=== PATIENT | female | born 1945 | race Caucasian/White ===

== ENCOUNTER 2017-01-23 00:49 | Emergency (ER) | payer MEDICARE, OTHER ==
[~2017-01-23] VITALS: Ht 160 cm; Wt 91.5 kg
[~2017-01-23 00:49] MED LIST: ASPI81TA2 PO; ATEN25TA PO; ENZY1TAB5 PO; LEVO112T4 PO; LEVO125T4 PO; MULT-1175 PO; POTA99TA4 PO
[2017-01-23 00:51] VITALS: Ht 160 cm; Wt 91.5 kg
--- OUTSIDE RECORDS SUMMARY | 2017-01-23 00:55 | XMS REPORT | Continuity of Care Document ---
Author Author [facility] Organization [facility] Address Unknown Phone Unavailable Support Name Relationship Address Phone CLEMENCIA BLANCO DO Caregiver [address] [place] [address] Unavailable BRADY WANG MD Caregiver [address] [place] [address] [place] [address] Unavailable JAQUELINE ORDAZ Next Of Kin [address] [place] [address] Insurance Providers Guarantor Binta Ordaz Address [address] [place] [address] Email DENIED/09/07/16 Payer Other A Insurance Policy Number [id number] Subscriber's Name OrlinJosianepatric Salinas Relationship 18 Self Group Number [id number] Effective Date 11 Payer Medicare Policy Number [id number] Subscriber's Name Josiane Ordazpatric Salinas Relationship 18 Self Effective Date 08 Advance Directives Directive Response Recorded Date/Time Advanced Directives Type None 09/07/16 1:00pm Chief Complaint and Reason for Visit Chief Complaint Cardiac Complaint Reason for Visit Atypical chest pain Problems Active Problems Medical Problem Onset Date Status Constipation Unknown Acute Hemorrhagic cystitis Unknown Acute Past Problems Medical Problem Onset Date Atypical chest pain Unknown Constipation Unknown Medications Current Home Medications Medication Dose Units Route Directions Days Qty Instructions Start Date Aspirin 81 Mg Tab.chew 81 Mg Oral Daily 08/24/15 Atenolol 25 Mg Tablet 25 Mg Oral Bedtime 03/01/16 Enzymes,Digestive (Digestive Enzyme) 1 Each Tablet 2 Tab Oral Daily as needed for Prn Orders 08/24/15 Levothyroxine Sodium (Synthroid) 112 Mcg Tablet 112 Mcg Oral Every Other Day 03/01/16 Levothyroxine Sodium (Synthroid) 125 Mcg Tablet 125 Mcg Oral Every Other Day 03/01/16 Multivitamin (Multi-Vitamin Daily) 1 Each Tablet 1 Tab Oral Twice A Day 08/24/15 Potassium 99 Mg Tablet 99 Mg Oral Daily 08/24/15 Past Home Medications Medication Directions Ordered Status Ezetimibe (Zetia) 10 Mg Tablet, 10 Mg Oral Daily 05/29/09 Discontinued Social History Social History Problem Response Recorded Date/Time Onset Date Status Hx Substance Use No 09/07/2016 1:44pm Not Applicable Not Applicable Hx Alcohol Use No 09/07/2016 1:44pm Not Applicable Not Applicable Query Response Start Date Stop Date Smoking Status Never smoker Hospital Discharge Instructions No hospital discharge instructions. Plan of Care Discharge Date 09/07/16 2:45pm Disposition 01 DISCHARGED HOME, SELF-CARE Condition at Discharge Stable Instructions/Education Provided DI for Atypical Chest Pain Prescriptions See Medication Section Referrals CLEMENCIA BLANCO DO Address: [address] [place] [address] [place] [phone] Additional Instructions/Education Continue to monitor your symptoms and make sure that you are drinking plenty of fluids. I did speak with Dr. Simmons's Nurse Practitioner and she states that if you continue to have trouble with this kind of pain they can do a stress test in the office. If this continues then please follow up with Dr Simmons in the next few weeks. Care Plan and Goals Physician Care Plan Problem:Atypical Chest Pain Goal: Follow up with primary care provider Instructions: Take medications and follow care plan as discussed/written Functional Status No functional status results. Allergies, Adverse Reactions, Alerts Allergen Type Severity Reaction Status Last Updated No Known Drug Allergies Allergy Unknown Active 09/07/16 Immunizations Query Response on File Recorded Date/Time Hx Influenza Vaccination Y 200705/29/09 3:04pm Hx Pneumococcal Vaccination No 05/29/09 3:04pm Hx Influenza Vaccination Y 200705/29/09 3:04pm Influenza Vaccine Hx FALL 201509/07/16 1:44pm Vital Signs Acute Vital Signs Vital Response Date/Time Temperature (Fahrenheit) 97.7 deg F (96.8 - 99.1) 09/07/2016 2:45pm Temperature (Calculated Celsius) 36.61471 degrees C (36.0 - 37.3) 09/07/2016 2:45pm Pulse Rate (adult) 74 bpm (60 - 100) 09/07/2016 2:45pm Respiratory Rate 18 breaths/min (10 - 20) 09/07/2016 2:45pm O2 Sat by Pulse Oximetry 98 % (90 - 100) 09/07/2016 2:45pm Blood Pressure 145/78 mm Hg 09/07/2016 2:45pm Height (Feet) 5 feet 09/07/2016 1:00pm Height (Inches) 3.00 inches 09/07/2016 1:00pm Weight (Kilograms) 82.000 kg 09/07/2016 1:00pm Body Mass Index (BMI) 32.0 09/07/2016 1:00pm Results Laboratory Results Test Name Result Units Flags Reference Collection Date/Time Result Date/ Time Comments White Blood Count 8.6 T/MM3 4.5-11.0 09/07/2016 1:11pm 09/07/2016 1: 38pm Red Blood Count 4.59 M/MM3 4.00-5.20 09/07/2016 1:11pm 09/07/2016 1: 38pm Hemoglobin 14.2 GM/DL 12-16 09/07/2016 1:11pm 09/07/2016 1:38pm Hematocrit 43.0 % 36-46 09/07/2016 1:11pm 09/07/2016 1:38pm Mean Corpuscular Volume 93.7 UM3 80-100 09/07/2016 1:11pm 09/07/2016 1: 38pm Mean Corpuscular Hemoglobin 30.9 UUG 26-34 09/07/2016 1:11pm 2016 1:38pm Mean Corpuscular Hemoglobin Concent 33.0 GM/DL 31-37 09/07/2016 1:11pm 09/07/2016 1:38pm RDW Standard Deviation 44.8 FL 36.9-50.2 09/07/2016 1:11pm 09/07/2016 1 :38pm Platelet Count 226 T/MM3 130-400 09/07/2016 1:11pm 09/07/2016 1:38pm Mean Platelet Volume 9.6 UM3 9.4-12.4 09/07/2016 1:11pm 09/07/2016 1: 38pm Neutrophils (%) (Auto) 35.2 % 33-66 09/07/2016 1:11pm 09/07/2016 1: 38pm Lymphocytes (%) (Auto) 54.8 % H 23-45 09/07/2016 1:11pm 09/07/2016 1: 38pm Monocytes (%) (Auto) 7.5 % 0-9.0 09/07/2016 1:09/07/2016 1:38pm Eosinophils (%) (Auto) 2.2 % 0-4 09/07/2016 1:09/07/2016 1:38pm Basophils (%) (Auto) 0.2 % 0-2 09/07/2016 1:1109/07/2016 1:38pm Immature Granulocyte % (Auto) 0.1 % 0.0-0.5 09/07/2016 1:2016 1:38pm Absolute Neutrophils (auto) 3.0 T/MM3 1.8-7.7 09/07/2016 1:112016 1:38pm Absolute Lymphocytes (auto) 4.7 T/MM3 1-4.8 09/07/2016 1:2016 1:38pm Absolute Monocytes (auto) 0.6 T/MM3 0-0.8 09/07/2016 1:1109/07/2016 1:38pm Absolute Eosinophils (auto) 0.2 T/MM3 0-0.5 09/07/2016 1:112016 1:38pm Absolute Basophils (auto) 0.0 T/MM3 0-0.2 09/07/2016 1:09/07/2016 1:38pm Absolute Immature Granulocyte (auto 0.01 T/MM3 0.00-0.03 09/07/2016 1: 09/07/2016 1:38pm Icterus Index < 2 0-7 09/07/2016 1:09/07/2016 1:43pm Chemistry Specimen Hemolysis < 15 0-25 09/07/2016 1:09/07/2016 1 :43pm 0-25: Specimen Exhibited No Hemolysis. Turbidity < 20 0-20 09/07/2016 1:pm 09/07/2016 1:43pm Sodium Level 143 MEQ/L 134-144 09/07/2016 1:09/07/2016 1:43pm Potassium Level 3.8 MEQ/L 3.6-5 09/07/2016 1:11pm 09/07/2016 1:43pm Chloride Level 103 MEQ/L 98-107 09/07/2016 1:1109/07/2016 1:43pm Carbon Dioxide Level 27 MEQ/L 22-30 09/07/2016 1:11pm 09/07/2016 1: 43pm Anion Gap 13 MEQ/L 5-15 09/07/2016 1:11pm 09/07/2016 1:43pm Blood Urea Nitrogen 14.0 MG/DL 7-17 09/07/2016 1:11pm 09/07/2016 1: 43pm Creatinine 0.7 MG/DL 0.7-1.2 09/07/2016 1:11pm 09/07/2016 1:43pm BUN/Creatinine Ratio 20 RATIO 6-26 09/07/2016 1:11pm 09/07/2016 1:43pm Glomerular Filtration Rate Calc 82 09/07/2016 1:11pm 09/07/2016 1: 43pm Glucose Level 126 MG/DL H 65-110 09/07/2016 1:11pm 09/07/2016 1:43pm Calculated Osmolality 278 MOSM/KG 261-280 09/07/2016 1:11pm 09/07/2016 1:43pm Calcium Level 10.0 MG/DL 8.4-10.2 09/07/2016 1:11pm 09/07/2016 1:43pm Troponin I < 0.012 ng/ml 0-0.12 09/07/2016 1:11pm 09/07/2016 1:55pm Troponin values with a difference of 55% increase from orginal troponin value represent a true biological DELTA value. (%increase Calc=Orginal Troponin value, divided by subsequent Troponin value, multiplied by 100) Procedures No known history of procedures. Encounters Encounter Location Arrival/Admit Date Discharge/Depart Date Attending Provider Departed Emergency Room [facility] 09/07/16 12:59pm 09/07/16 2: 45pm BRADY WANG MD Recent Diagnosis
--- NOTE | 2017-01-23 01:15 | NUR ---
PROVIDER DR. LOMBARDO IN ROOM WITH PT.
[2017-01-23] MEDS ORDERED: LORAZEPAM 1 MG TABLET PO ONE (01:30)
[2017-01-23] MEDS ORDERED: NITROGLYCERIN 0.4 MG SUBLINGUAL TABLET SL PRN (01:30)
[2017-01-23 01:42] LABS: BASOPHILS % (AUTO) 0.1 % (0-2); EOSINOPHILS # (AUTO) 0.3 T/MM3 (0-0.5); EOSINOPHILS % (AUTO) 3.1 % (0-4); HGB - HEMOGLOBIN 13.1 GM/DL (12-16); IMMATURE GRANULOCYTE # (AUTO) 0.02 T/MM3 (0.00-0.03); IMMATURE GRANULOCYTE % (AUTO) 0.2 % (0.0-0.5); LYMPHOCYTES # (AUTO) 4.5 T/MM3 (1-4.8); LYMPHOCYTES % (AUTO) 52.1 % (23-45); MEAN CORPUSCULAR HGB 31.2 UUG (26-34); MEAN CORPUSCULAR HGB CONC(MCHC 32.8 GM/DL (31-37); MEAN CORPUSCULAR VOLUME 95.2 UM3 (80-100); MEAN PLATELET VOLUME 9.5 UM3 (9.4-12.4); MONOCYTES # (AUTO) 0.6 T/MM3 (0-0.8); MONOCYTES % (AUTO) 6.9 % (0-9.0); NEUTROPHILS #(AUTO)-ABSOLUTE 3.2 T/MM3 (1.8-7.7); NEUTROPHILS % (AUTO) 37.6 % (33-66); WBC - WHITE BLOOD COUNT 8.6 T/MM3 (4.5-11.0)
[2017-01-23] MEDS ORDERED: LORAZEPAM 2 MG/ML INJECTION IV ONE (01:45)
[2017-01-23] MEDS: NORMAL SALINE 1,000 ML IV ONE (01:48)
[2017-01-23] MEDS: ASPIRIN 81 MG CHEWABLE TABLET PO ONE (01:52)
[2017-01-23] MEDS: LORAZEPAM 2 MG/ML INJECTION IV ONE (01:52)
[2017-01-23 01:54] LABS: ALBUMIN 4.3 G/DL (3.5-5.0); ALBUMIN/GLOBULIN RATIO 1.5 RATIO (1.1-2.2); ALKALINE PHOSPHATASE 53 U/L (38-126); ALT (SGPT) 35 U/L (9-52); ANION GAP 16 MEQ/L (5-15); AST (SGOT) 29 U/L (14-36); BUN/CREATININE RATIO 25 RATIO (6-26); CALCIUM 9.3 MG/DL (8.4-10.2); CHLORIDE 105 MEQ/L (98-107); CO2 - CARBON DIOXIDE 24 MEQ/L (22-30); CREATININE 0.8 MG/DL (0.7-1.2); GLOMERULAR FILTRATION RATE 71; GLUCOSE 153 MG/DL (65-110); SODIUM 145 MEQ/L (134-144); TOTAL PROTEIN 7.2 G/DL (6.3-8.2)
[2017-01-23 02:00] LABS: INR 0.97 (0.77-1.03); PROTHROMBIN TIME 10.7 SEC (9.48-12.52)
[2017-01-23 02:06] LABS: PROBNP 271 PG/ML (0-175)
[2017-01-23 02:24] LABS: THYROID STIM HORMONE-TSH 6.03 MIU/L (0.47-4.68)
--- NOTE | 2017-01-23 02:30 | NUR ---
PROVIDER DR. LOMBARDO IN ROOM WITH PT.
--- NOTE | 2017-01-23 02:33 | NUR ---
PT STATUS PT STATES HER RIGHT ARM PAIN HAS DECREASED, CONTINUES TO DENY ANY CHEST DISCOMFORT OR DYSPNEA. PT NOW REMEMBERS SHE WAS CARRING HEAVY JUGS TODAY AND DID A LOT OF SWEEPING, ACTIVITIES THAT WOULD NOT BE NORMAL FOR HER. PT RATING PAIN A 3/10 TO RIGHT BICEP AT THIS TIME. PT SHOWS NO SIGNS OF DISCOMFORT. Addendum: 01/23/17 at 0239 by SHAYLA RIGHT TROCEP, NOT BICEP.
--- NOTE | 2017-01-23 02:36 | ERPDOC ---
Departure Disposition Decision Date: January 23, 2017 Disposition Decision Time: 02:40 Disposition: 01 DISCHARGED HOME, SELF-CARE Impression Impression Impression: Primary Impression: Right arm pain Additional Impression: Chest pain Severity: Moderate Condition: Improved Seen By: Physician only Referrals: CLEMENCIA BLANCO DO (Family) Patient Instructions: Anxiety (ED), Musculoskeletal Pain (ED) Problems/Meds/Labs Reviewed?: Yes Medications reviewed and manag: Yes Additional Instructions: Please return immediately if symptoms recur. At this point I do believe this is musculoskeletal and anxiety due to year his friends last week. The Ativan you were given follow-up to relax tonight. Would recommend he follow up with her primary care provider and discuss other options for the future. Follow up care ordered?: Yes Mental Status: Alert, Oriented HPI - Chest Pain General Chief Complaint: Cardiac Complaint Stated Complaint: RIGHT ARM PAIN,GAS PAIN Time Seen by Provider: 01:25 HPI - Chest Pain Initial Comments 71-year-old female presents with right-sided arm pain radiating up to her shoulder. She had a very stressful week last week with her 53-year-old son going into [employer] in the emergency room and requiring CPR, a trip to the [facility] [employer], and ultimately a balloon pump. He then had cardiac bypass surgery. He is survived, is home with them and the anxiety level in their home is pretty high. She does not normally have anxiety problems. She has not had a cardiac stress test in many years. His have a history of atrial stenosis. No tobacco use, essentially no alcohol use. Aspirin Treatment Today: 81 mg x 4 Allergies: Coded Allergies: No Known Drug Allergies (Verified Allergy, Unknown, 01/23/17) Past History Past Medical History Metabolic: hypertension, hypothyroidism Cardiac: other GI: other Musculoskeletal: back pain, osteoarthritis Surgical History General: EGD, gallbladder, other Joint: elbow Family History Family PMH: FOUND: other Vaccines Hx Influenza Vaccination: Yes (2007) Hx Pneumococcal Vaccination: No Social History Smoking Status: Never smoker Substance Use Type: does not use Alcohol Intake: none Sexuality: male partner Record Review Pertinent history updated: Yes Review of Systems Cardiovascular Cardiac: see HPI Rhythm/Rate: see HPI All other Systems All Other Systems: Reviewed and Negative Physical Exam General General Nourishment: well nourished, well developed, adult Distress Description Patient is right-sided arm pain Vitals and Pain First Documented Vital Signs Date Time Temp Pulse Resp B/P Pulse Ox O2 Delivery O2 Flow Rate FiO2 01/23/17 00:51 97.9 73 14 184/88 98 Room Air Weight: Kilograms: 91.500 Height (feet): 5 Height (inches): 3.00 Triage Pain Scale: Normal Exams: Neck: Full range of motion, without adenopathy, JVD, bruits or thyromegaly Chest/Resp: Clear all [place], with good airflow, and symmetry bilaterally CV: Regular rate and rhythm, without murmur or gallop, Pulses 2+ all extremities, capillary refill, <2 seconds all ext., no pedal edema noted Neurologic: Patient is alert, and oriented, cranial nerves, motor/sensory/ cerebellar, exams w/o gross deficits, to observation Psychiatric: Patient exhibits, appropriate attention, emotion and affect Musculoskeletal (brief) Comments Tenderness to palpation right triceps and posterior shoulder. Differential Diagnoses Considering: Acute IL, Anxiety/Panic, Angina, Pleurisy, Pneumothorax, Pneumonia , Pulmonary Edema, Pulmonary Embolus Progress Results/Orders Orders Procedure Category Date Status Time Cbc W/Auto LAB 01/23/17 Complete Diff-Reflex Manual 01:25 Cmp - Comprehensive LAB 01/23/17 Complete Metabolic 01:25 Probnp LAB 01/23/17 Complete 01:25 Troponin I W LAB 01/23/17 Complete Hemolysis Index 01:25 INR LAB 01/23/17 Complete 01:25 D-Dimer LAB 01/23/17 Complete 01:25 Tsh - Thyroid Stim LAB 01/23/17 Complete Hormone 01:25 EKG EKG 01/23/17 Logged 01:25 Chest 1 View RAD 01/23/17 Taken 01:25 Iv Lock (Ed Only) EDM 01/23/17 Transmitted 01:25 Normal Saline (Normal PHA 01/23/17 Complete Saline Iv) 01:25 Aspirin (Asa) PHA 01/23/17 Complete 01:30 Nitroglycerin PHA 01/23/17 In Process (Nitrostat) 01:30 Lorazepam (Ativan) PHA 01/23/17 Complete 01:30 Lorazepam (Ativan) PHA 01/23/17 Complete 01:45 Lorazepam (Ativan) PHA 01/23/17 Complete 01:45 Lab Results Laboratory Tests Test 01/23/17 01:35 White Blood Count 8.6T/MM3 Red Blood Count 4.20M/MM3 Hemoglobin 13.1GM/DL Hematocrit 40.0% Mean Corpuscular Volume 95.2UM3 Mean Corpuscular Hemoglobin 31.2UUG Mean Corpuscular Hemoglobin Concent 32.8GM/DL RDW Standard Deviation 47.3FL Platelet Count 230T/MM3 Mean Platelet Volume 9.5UM3 Immature Granulocyte % (Auto) 0.2% Neutrophils (%) (Auto) 37.6% Lymphocytes (%) (Auto) 52.1% Monocytes (%) (Auto) 6.9% Eosinophils (%) (Auto) 3.1% Basophils (%) (Auto) 0.1% Absolute Immature Granulocyte (auto 0.02T/MM3 Absolute Neutrophils (auto) 3.2T/MM3 Absolute Lymphocytes (auto) 4.5T/MM3 Absolute Monocytes (auto) 0.6T/MM3 Absolute Eosinophils (auto) 0.3T/MM3 Absolute Basophils (auto) 0.0T/MM3 Prothromb Time International Ratio 0.97 D-Dimer < 150NG/ML Turbidity < 20 Sodium Level 145MEQ/L Potassium Level 4.0MEQ/L Chloride Level 105MEQ/L Carbon Dioxide Level 24MEQ/L Anion Gap 16MEQ/L Blood Urea Nitrogen 20.0MG/DL Creatinine 0.8MG/DL Glomerular Filtration Rate Calc 71 BUN/Creatinine Ratio 25RATIO Glucose Level 153MG/DL Calculated Osmolality 285MOSM/KG Calcium Level 9.3MG/DL Total Bilirubin 0.40MG/DL Icterus Index < 2 Aspartate Amino Transf (AST/SGOT) 29U/L Alanine Aminotransferase (ALT/SGPT) 35U/L Alkaline Phosphatase 53U/L Troponin I < 0.012ng/ml CE-Hvl-Q-Type Natriuretic Peptide 271PG/ML Total Protein 7.2G/DL Albumin 4.3G/DL Globulin 2.9G/DL Albumin/Globulin Ratio 1.5RATIO Thyroid Stimulating Hormone (TSH) 6.03MIU/L Chemistry Specimen Hemolysis < 15 Medications Current ED Medications Sodium Chloride (Normal Saline IV) 1,000 ml @ 1,000 mls/hr Q1H ONCE IV Last administered on 01/23/17 01:48; Start 01/23/17 at 01:25; Stop 01/23/17 at 02:24 ; Status DC Aspirin (ASA) 324 mg O ONCE PO Last administered on 01/23/17 01:52; Start at 01:30; Stop 01/23/17 at 01:31; Status DC Nitroglycerin (Nitrostat) 0.4 mg Q5MIN PRN SL CHEST PAIN; Start 01/23/17 at 01: 30 Lorazepam (Ativan) 1 mg O ONCE PO ; Start 01/23/17 at 01:30; Stop 01/23/17 at 01:59; Status DC Lorazepam (Ativan) 0.5 mg O ONCE IV ; Start 01/23/17 at 01:45; Stop 01/23/17 at 01:59; Status DC Lorazepam (Ativan) 0.5 mg O ONCE IV Last administered on 01/23/17 01:52; Start 01/23/17 at 01:45; Stop 01/23/17 at 01:52; Status DC Progress Progress CBC and CMP are appropriate. Patient has negative troponin as well as negative d -dimer. EKG has no questionable changes. Likelihood of this being cardiac is very low at this point. She does need a repeat stress test and agreed to follow- up with her training and development manager. The more we talked, she did remember having swept the walk yesterday and carrying some gallon buckets of water with her right arm. I do think this accounts for the physical tenderness on the arm. She was given Ativan 0.5 mg IV which helped her relax, at this time all symptoms are resolved and she is comfortable to go home. She will return if symptoms recur, especially in light of her sons experiences last week. RIAN LOMBARDO MD January 23, 2017 02:36
[2017-01-23 02:57] VITALS: BP 152/82; PULSE 70; RESP 16; TEMP 97.9; O2SAT 97
--- NOTE | 2017-01-23 07:56 | DI ---
Indication: ITS.REASON: chest pain PROCEDURE: CHEST 1 VIEW: Encounter: Initial Comparison: September 07, 2016 FINDINGS: The lungs are clear. There is no abnormal airspace opacity, pleural effusion or pneumothorax identified. The heart size, pulmonary vasculature and mediastinum are within normal limits. No significant skeletal abnormality is seen. IMPRESSION: No acute cardiopulmonary abnormality. .
== END 2017-01-23 02:57 | disposition home or self-care (01) ==
LOC: ED 00:49
DX: M79.601 Pain in right arm (principal); R07.9 Chest pain, unspecified; I10 Essential (primary) hypertension
CPT/HCPCS: 71010; 80053; 83880; 84443; 84484; 85025; 85379; 85610; 93005; 96361; 96374; 99284; A9270; J2060; J7030